=== PATIENT | female | born 1985 | race Caucasian/White ===

== ENCOUNTER 2018-08-06 17:25 | Emergency (ER) | payer OTHER ==
[2018-08-06] MEDS ORDERED: TETRACAINE HCL 0.5% OPH SOLN 4 ML OD ONE (18:33)
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
--- NOTE | 2018-08-06 20:41 | RADIOLOGY REPORT (SQ) ---
CT ORBITS WITH IV CONTRAST HISTORY: Trauma. Visual loss COMPARISON: None. TECHNIQUE: CT scan of the orbits with IV contrast. This exam was performed according to our departmental dose-optimization program, which includes automated exposure control, adjustment of the mA and/or kV according to patient size and/or use of iterative reconstruction technique. FINDINGS: No focal fluid collection is seen. No evidence of postseptal cellulitis. No retrobulbar mass or hematoma. The bony structures of the orbit are intact. There are mucosal secretions in the right maxillary sinus. The mastoid air cells are also clear. IMPRESSION: No evidence of postseptal cellulitis or abscess.
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
[2018-08-06] MEDS ORDERED: POLYMYXIN B SULFATE/TMP OPH SOLN (10 ML/ER DISP) OS PRN (21:19)
[2018-08-06 21:50] VITALS: BP 113/66
== END 2018-08-06 21:38 | disposition home or self-care (01) ==
LOC: ER 17:25
DX: S05.92XA Unspecified injury of left eye and orbit, initial encounter (principal); H53.8 Other visual disturbances; H57.12 Ocular pain, left eye; W22.8XXA Striking against or struck by other objects, initial encounter; Y92.003 Bedroom of unspecified non-institutional (private) residence as the place of occurrence of the external cause
CPT/HCPCS: 99285; 70481; J3490 ×2

== ENCOUNTER → 2018-08-31 | Outpatient (CLI) | payer OTHER | LOC: OD 13:00 | PROVIDERS: ATTEND Nurse Practitioner Acute Care | DX: R30.0 Dysuria (principal) | CPT/HCPCS: 87086; 87088; 87186 ==

== ENCOUNTER 2019-05-02 13:00 | Emergency (ER) | payer OTHER ==
--- NOTE | 2019-05-02 13:19 | ER Document Report ---
ED Medical Screen (RME) - General Chief Complaint: Anxiety Stated Complaint: ANXIETY Time Seen by Provider: 05/02/19 13:03 Primary Care Provider: FLORIAN IVEY NP [Primary Care Provider] - Follow up as needed Mode of Arrival: Ambulatory Information source: Patient Notes: 34-year-old female presents to the emergency department with reports of anxiety increased family stress. Reports she has suicidal ideations this morning no plan. Patient is very emotional tearful. is with patient. Denies history of attempted suicide. I have greeted and performed a rapid initial assessment of this patient. A comprehensive ED assessment and evaluation of the patient, analysis of test results and completion of the medical decision making process will be conducted by additional ED providers. Dictation of this chart was performed using voice recognition software; therefore, there may be some unintended grammatical errors. TRAVEL OUTSIDE OF THE [place] IN LAST 30 DAYS: No - Related Data Allergies/Adverse Reactions: prednisone [Prednisone] Adverse Reaction (Verified 05/02/19 13:04) Past Medical History Pulmonary Medical History: Reports: Hx Bronchitis Denies: Hx Tuberculosis Renal/ Medical History: Denies: Hx Peritoneal Dialysis GI Medical History: Reports: Hx Gastroesophageal Reflux Disease - Recently started on Nexium Past Surgical History: Reports: Hx Appendectomy, Hx Cholecystectomy, Hx Hysterectomy, Hx Tubal Ligation - Immunizations Hx Diphtheria, Pertussis, Tetanus Vaccination: Yes Doctor's Discharge - Discharge Referrals: FLORIAN IVEY NP [Primary Care Provider] - Follow up as needed
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
[2019-05-02 13:46] LABS: APPEARANCE,URINE CLOUDY; BILIRUBIN,URINE NEGATIVE (NEGATIVE); GLUCOSE, URINE NEGATIVE (NEGATIVE); KETONES,URINE NEGATIVE (NEGATIVE); LEUKOCYTE ESTERASE,URINE MODERATE (NEGATIVE); NITRITE,URINE NEGATIVE (NEGATIVE); PROTEIN,URINE 30 mg/dL (NEGATIVE); URINE SPECIFIC GRAVITY 1.026
[2019-05-02 13:47] LABS: COLOR,URINE YELLOW
[2019-05-02 14:05] LABS: URINE AMPHETAMINES SCREEN NEGATIVE; URINE BARBITURATES SCREEN NEGATIVE; URINE BENZODIAZEPINES SCREEN NEGATIVE; URINE COCAINE SCREEN NEGATIVE; URINE MARIJUANA (THC) SCREEN UNCONFIRMED POSITIVE; URINE METHADONE SCREEN NEGATIVE; URINE PHENCYCLIDINE SCREEN NEGATIVE
[2019-05-02] MEDS ORDERED: BUSPIRONE HCL 10 MG TABLET PO ONE (15:16)
[2019-05-02] MEDS ORDERED: OLANZAPINE 2.5 MG TABLET PO ONE (15:16)
[2019-05-02 15:51] LABS: ABSOLUTE LYMPHOCYTES (AUTO) 2.3 10^3/uL (0.5-4.7); ABSOLUTE MONOCYTES (AUTO) 0.5 10^3/uL (0.1-1.4); ABSOLUTE NEUT (AUTO) 5.5 10^3/uL (1.7-8.2); BASOPHILS % (AUTO) 0.3 % (0-2); EOSINOPHILS % (AUTO) 0.2 % (0-6); HEMATOCRIT 42.7 % (36.0-47.0); HEMOGLOBIN 14.6 g/dL (12.0-15.5); LYMPHOCYTES % (AUTO) 27.7 % (13-45); MEAN CORPUSCULAR HGB CONC 34.1 g/dL (32.0-36.0); MEAN CORPUSCULAR VOLUME 91 fl (80-97); MONOCYTES % (AUTO) 5.5 % (3-13); PLATELET COUNT 232 10^3/uL (150-450); RED BLOOD COUNT 4.71 10^6/uL (3.72-5.28); RED CELL DISTRIBUTION WIDTH 13.3 % (11.5-14.0); SEGMENTED NEUTROPHILS % (AUTO) 66.3 % (42-78); TOTAL CELLS COUNTED % (AUTO) 100 %; WHITE BLOOD COUNT 8.3 10^3/uL (4.0-10.5)
--- NOTE | 2019-05-02 16:00 | PSYCHOLOGICAL NOTE ---
Psych Note - Psych Note Date seen by psych provider: 05/02/19 Time seen by psych provider: 13:45 Psych Note: Reason for consult: SI Patient is a 34 year old female who presents to ED via POV. Patient is accompanied by her . Patient states she is experiencing increased anxiety as she experiences the totality of several life stressors. Patient stated the of her grandmother hit me hard. 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 Patient was emotional and tearful as she described thoughts and emotions related to "not being good enough," "being a bad mom," and other situations in which she was overwhelmed. Patient stated she is aware that current thoughts and emotions are not like me. Patient described a pattern of taking care of others at the detriment of her mental and physical health. Patient denies suicidal and homicidal ideations. Patient denies auditory and visual hallucinations. Patient is alert and oriented to person, place, time and circumstance. Mood is elevated with congruent affect as evidenced by smiling, laughing and engaging with clinician. Patient denies suicidal and homicidal ideation. Patient denies auditory and visual hallucinations. Delusions are absent and behavior is congruent with an intact reality based presentation (i.e. organized and linear thought processes). There is no observed behavior that suggests patient is responding to internal stimuli. Eye contact is good. Conversational speech is within normal rate, tone, and prosody- however pressured at times. Intellectual ability appears to be within average range. Attention and concentration are good. Insight, judgment, and impulse control are good. DSM Diagnosis: Generalized anxiety disorder Medication recommendations per [facility] contracted psychiatrist Dr. Jenaro MOODY is as follows: Buspar 5MG, twice a day Zyprexa 2.5MG, one time dose Impression/Plan: Patient is cleared from acute psychiatric services. Patient does not meet IVC criteria per [place] GS 122C. Patient denies suicidal and homicidal ideations. Patient denies auditory and visual hallucinations. Patient has a strong support system at home with her . Patient is aware that current thoughts and behaviors are out of character for her. Patient is aware of her need for self care. Medication recommendations have been provided. It is recommended that patient obtain mental health services for mental health services and medication management. It is recommenced that patient follow up with section leader and machine setter and primary care physician to rule out hormonal and/or thyroid concerns. Patient was provided with a one time dose of Zyprexa to assist with anxiety symptoms. Dr. Westbrook was consulted on the care and management of this patient; attending physician is in agreement with recommendations and disposition.
[2019-05-02 16:22] LABS: ALBUMIN 4.5 g/dL (3.5-5.0); ALKALINE PHOSPHATASE 41 U/L (38-126); ANION GAP 9 (5-19); ASPARTATE AMINO TRANSFERASE 24 U/L (14-36); BILIRUBIN,DIRECT 0.2 mg/dL (0.0-0.4); BILIRUBIN,TOTAL 0.9 mg/dL (0.2-1.3); BLOOD UREA NITROGEN 15 mg/dL (7-20); CALCIUM 9.3 mg/dL (8.4-10.2); CARBON DIOXIDE 29 mmol/L (22-30); CHLORIDE 103 mmol/L (98-107); GLUCOSE 88 mg/dL (75-110); POTASSIUM 4.3 mmol/L (3.6-5.0); TOTAL PROTEIN 7.4 g/dL (6.3-8.2)
[2019-05-02 16:25] LABS: ACETAMINOPHEN < 10 ug/mL (10-30); ALCOHOL < 10 mg/dL (NONE DETECTED); SALICYLATE < 1.0 mg/dL (2.0-20.0)
[2019-05-02 17:25] VITALS: BP 117/61
--- NOTE | 2019-05-02 23:29 | EKG REPORT ---
SEVERITY:- NORMAL ECG - SINUS RHYTHM : Confirmed by: Stefanie Hart MD 02-May-2019 23:28:56
== END 2019-05-02 18:01 | disposition home or self-care (01) ==
LOC: ER 13:00
DX: F41.9 Anxiety disorder, unspecified (principal); F12.90 Cannabis use, unspecified, uncomplicated; F39 Unspecified mood [affective] disorder
CPT/HCPCS: 93005; 36415; 80307 ×4; 84443; 85025; 81025; 80053; 81001; 93010; J3490; 87086; 87088